=== PATIENT | female | born 1940 | race Caucasian/White ===

== ENCOUNTER 2016-10-25 15:00 | Observation (INO) | payer OTHER ==
--- NOTE | 2016-10-25 15:30 | EDPHY ---
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 Sometimes up by Tylenol and associated with diarrhea which is intermittent and not black or bloody. No vomiting. Associated symptoms include decreased appetite per the family, cognitive decline , and falling last with increasingly unsteady gait. Patient states she thinks she is eating normally but the family says dramatically decreased appetite secondary to not being hungry. REVIEW OF SYSTEMS: Eye: no change in vision ENT: no sore throat Cardiac: no chest pain or syncope Pulmonary: no cough or SOB Abdomen: HPI Musculoskeletal: no back pain Skin: no rash Neuro: no headache, but increasing weakness Constitutional: no fever : no urinary symptoms A comprehensive 10 point review of systems is otherwise negative aside from elements mentioned in the history of present illness. PAST MEDICAL HISTORY: Discharge summary dated 06/25/16 personally reviewed by myself. 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 Social history: History from family including and others General Appearance: Alert and conversant, cooperative. Eyes: No scleral icterus. ENT, Mouth: Dry mucous membranes Respiratory: Normal respiratory effort, breath sounds equal, lungs are clear to auscultation. Cardiovascular: Regular rate and rhythm. Gastrointestinal: Left upper quadrant and right lower quadrant very mild tenderness without rebound or guarding. Neurological: Alert and follows commands. Normally conversant. Face symmetric , normal movement and sensation in all extremities. Skin: Warm and dry, no rashes. Musculoskeletal: No peripheral edema and no joint swelling. Psychiatric: Not agitated. Emergency Department course/MDM: Answers questions appropriately. She appears comfortable and is conversant and does not appear in severe distress. Lab sent to include chemistry panel liver function tests and protime, as well as three-way abdomen. Dr. Flores her oncologist is paged and discussed at [phone]. Recommends abdominal pelvic CT scanning and admission for pain control and coordination of consultations regarding her care. Clinically the patient is not acidotic. She is not in severe pain and does not have severe tenderness, mesenteric ischemia was considered but I think not highly likely. CT scanning was performed without contrast because of slightly elevated creatinine and a very small person, concern for very low GFR. Smoking Status: Never smoked Constitutional: Initial Vital Signs Temperature (C) 36.5 C 10/25/16 15:01 Heart Rate 87 10/25/16 15:01 Respiratory Rate 16 10/25/16 15:01 Blood Pressure 121/69 H 10/25/16 15:01 O2 Sat (%) 97 10/25/16 15:01 O2 Delivery Mode Nasal Cannula O2 (L/minute) 2 Allergies/Adverse Reactions: codeine [Codeine] Allergy (Verified 09/15/16 10:11) GI oxycodone HCl [From Percocet] Allergy (Verified 09/15/16 10:11) GI Home Medications: Medication Instructions Recorded Atenolol [Tenormin 25 mg (*)] 25 mg PO DAILY 06/06/16 Atorvastatin Calcium [Lipitor 20 20 mg PO HS 06/06/16 mg (*)] Omeprazole [Prilosec 20 mg] 20 mg PO DAILY 06/06/16 Ondansetron Odt [Zofran Odt 4 mg 4 mg PO Q8 PRN 06/17/16 (*)] Acetaminophen [Tylenol 325mg (*)] 650 mg PO Q4 PRN #0 tab 06/25/16 Magnesium Oxide [Magnesium Oxide 400 mg PO DAILY 10/25/16 400 mg (*)] Potassium Chloride [Klor-Con 10] 10 meq PO DAILY 10/25/16 Warfarin Sodium [Coumadin 3MG (*)] 3 mg PO DAILY16 10/25/16 Medical Decision Making - Diagnostics Imaging: CT abdomen and pelvis ordered without contrast because of elevated creatinine reported by Dr. Arnulfo Wilburn at 6:00 p.m. is possible peritoneal carcinomatosis no reason for abdominal pain. Differential Diagnosis: Differential considered including but not limited to cancer, bowel obstruction, ischemic bowel, infectious diarrhea, metabolic. Consult/Admit Bed Type: [place] [id number] - Data Points Laboratory Results: Laboratory Results 10/25/16 16:18 10/25/16 16:18 10/25/16 16:18 WBC 6.18 10^3/uL (3.80-9.50) RBC 4.47 10^6/uL (4.18-5.33) Hgb 12.1 L g/dL (12.6-16.3) Hct 37.8 L % (38.0-47.0) MCV 84.6 fL (81.5-99.8) MCH 27.1 L pg (27.9-34.1) MCHC 32.0 L g/dL (32.4-36.7) RDW 14.3 % (11.5-15.2) Plt Count 200 10^3/uL (150-400) MPV 9.7 fL (8.7-11.7) Neut % (Auto) 58.0 % (39.3-74.2) Lymph % (Auto) 31.2 % (15.0-45.0) Daniels % (Auto) 8.6 % (4.5-13.0) Eos % (Auto) 1.3 % (0.6-7.6) Baso % (Auto) 0.6 % (0.3-1.7) Nucleat RBC Rel Count 0.0 % (0.0-0.2) Absolute Neuts (auto) 3.58 10^3/uL (1.70-6.50) Absolute Lymphs (auto) 1.93 10^3/uL (1.00-3.00) Absolute Monos (auto) 0.53 10^3/uL (0.30-0.80) Absolute Eos (auto) 0.08 10^3/uL (0.03-0.40) Absolute Basos (auto) 0.04 10^3/uL (0.02-0.10) Absolute Nucleated RBC 0.00 10^3/uL (0-0.01) Immature Gran % 0.3 % (0.0-1.1) Immature Gran # 0.02 10^3/uL (0.00-0.10) PT 31.7 H SEC (12.0-15.0) INR 3.02 H (0.83-1.16) Sodium 141 mEq/L (134-144) Potassium 4.1 mEq/L (3.5-5.2) Chloride 104 mEq/L (97-110) Carbon Dioxide 28 mEq/l (22-31) Anion Gap 9 mEq/L (8-16) BUN 24 H mg/dL (7-23) Creatinine 1.2 H mg/dL (0.6-1.0) Estimated GFR 44 Glucose 105 H mg/dL (70-100) Calcium 9.3 mg/dL (8.5-10.4) Total Bilirubin 0.5 mg/dL (0.1-1.4) Conjugated Bilirubin 0.3 mg/dL (0.0-0.5) Unconjugated Bilirubin 0.2 mg/dL (0.0-1.1) AST 19 IU/L (14-46) ALT 28 IU/L (9-52) Alkaline Phosphatase 75 IU/L (38-126) Total Protein 6.7 g/dL (6.3-8.2) Albumin 3.8 g/dL (3.5-5.0) Medications Given: Discontinued Medications Sodium Chloride (Ns) 1,000 mls @ 3,000 mls/hr IV ONCE ONE Stop: 10/25/16 19:02 Last Admin: 10/25/16 19:19 Dose: 1,000 mls Morphine Sulfate (Morphine) 2 mg IVP EDNOW ONE Stop: 10/25/16 16:53 Last Admin: 10/25/16 16:59 Dose: 2 mg Departure - Departure Disposition: [facility] Inpatient Acute Clinical Impression: Abdominal pain Condition: Good
--- NOTE | 2016-10-25 16:24 | DX ---
Three-Way Abdomen History: Abdominal pain. Chest Findings: Ventriculoperitoneal shunt partially visualized. The heart is normal in size. Left chest wall recording device. Atherosclerotic aorta. Slight hyperinflation of the lungs. No pneumo michela, pleural effusion, or pneumothorax. Abdomen, Two-View, Findings: Ventriculoperitoneal shunt ends in the left mid abdomen. Scattered sto ol and gas in the bowel, without obstruction or dilation. No significant air-fluid levels. No pneum operitoneum. Surgical sutures in right side of the abdomen and pelvis. Atherosclerotic abdominal ao rta. Impressions 1. Mild COPD. 2. No acute pulmonary disease. 3. No bowel obstruction or pneumoperitoneum. 4. Atherosclerotic aorta.
[2016-10-25 16:32] LABS: % IMMATURE GRANULYOCYTES 0.3 % (0.0-1.1); ABSOLUTE IMMATURE GRANULOCYTES 0.02 10^3/uL (0.00-0.10); ADD DIFF? NO; ADD MORPH? NO; ADD SCAN? NO; ATYPICAL LYMPHOCYTE FLAG 20 (0-99); FRAGMENT RBC FLAG 0 (0-99); HEMATOCRIT 37.8 % (38.0-47.0); HEMOGLOBIN 12.1 g/dL (12.6-16.3); LEFT SHIFT FLG 0 (0-99); LIPEMIA HEMOLYSIS FLAG 80 (0-99); MEAN CELL HEMOGLOBIN 27.1 pg (27.9-34.1); MEAN CELL VOLUME 84.6 fL (81.5-99.8); MEAN PLATELET VOLUME 9.7 fL (8.7-11.7); PLATELET CLUMPS FLAG 10 (0-99); PLATELET COUNT 200 10^3/uL (150-400); RED BLOOD CELL COUNT 4.47 10^6/uL (4.18-5.33); RED CELL DISTRIBUTION WIDTH 14.3 % (11.5-15.2)
[2016-10-25 16:40] LABS: INR 3.02 (0.83-1.16); PROTIME(PATIENT) 31.7 SEC (12.0-15.0)
[2016-10-25 16:46] LABS: ALANINE AMINOTRANSFERASE 28 IU/L (9-52); ALBUMIN 3.8 g/dL (3.5-5.0); ALKALINE PHOSPHATASE 75 IU/L (38-126); ANION GAP 9 mEq/L (8-16); ASPARTATE AMINOTRANSFERASE 19 IU/L (14-46); BILIRUBIN,TOTAL 0.5 mg/dL (0.1-1.4); BILIRUBIN-CONJUGATED 0.3 mg/dL (0.0-0.5); BILIRUBIN-UNCONJUGATED 0.2 mg/dL (0.0-1.1); CALCIUM 9.3 mg/dL (8.5-10.4); CARBON DIOXIDE 28 mEq/l (22-31); CHLORIDE 104 mEq/L (97-110); CREATININE 1.2 mg/dL (0.6-1.0); GLOMERULAR FILTRATION RATE 44; GLUCOSE 105 mg/dL (70-100); POTASSIUM 4.1 mEq/L (3.5-5.2); SODIUM 141 mEq/L (134-144); TOTAL PROTEIN 6.7 g/dL (6.3-8.2)
--- NOTE | 2016-10-25 18:27 | CT ---
CT Scan of the Abdomen and Pelvis (Without IV Contrast) Clinical Indications: Left-sided abdominal pain. History of colon cancer, with resection. Technique: No intravenous contrast was given. Multidetector helical CT imaging is performed from th e diaphragm to the symphysis pubis. Dose reduction techniques were utilized. Comparison: September 15, 2016. Findings: There is some scarring in the right middle lobe. The ventriculoperitoneal shunt is unchan ged from the prior examination. The liver is normal. The gallbladder is predominantly decompressed, with adjacent small bowel presen t. No calcifications are seen in the gallbladder. The pancreas and spleen are normal. The adrenal glands and kidneys are normal. Exophytic cyst is present in the left upper kidney. The aorta tapers normally. No stones are found. Pelvis: The urinary bladder is unremarkable. No free fluid in the pelvis. No masses are identified . The peritoneal nodule anterior to the bladder is slightly smaller than the prior examination. It measures 10 x 15 mm on today's examination, previously measuring 12 x 17 mm. It is seen series #3, i mage #253. Other small peritoneal nodules seen on the prior examination are not as well visualized t wali due to the lack of oral and IV contrast on today's study. Nodularity along the lower abdominal wall is suspicious for mesenteric disease and is slightly more prominent as seen on series #3, image #212, today than on prior examinations. The largest nodule measures 10 x 11 mm, previously measuring 7 x 8 mm. A ventriculoperitoneal shunt is again noted. Surgical changes are present in the mid abd omen, with adjacent soft tissue. I suspect this soft tissue represents tumor near the anastomosis. Impression: Increased thickening around the postsurgical site likely represents tumor. There is a m ixed response, with some increased subcutaneous nodules and decreased peritoneal metastasis adjacent to the bladder. No definite source of abdominal pain is present on today's examination Critical results relayed by Dr. Wilburn to Dr. Dylon Braun on October 25, 2016 at 1805 hours.
[2016-10-25] MEDS ORDERED: ONDANSETRON 4 MG/2 ML VIAL IVP PRN (18:43)
[2016-10-25] MEDS ORDERED: NS 1,000 ML IV ONE (18:43)
[2016-10-25] MEDS ORDERED: ONDANSETRON DISINTEGRATING 4 MG TAB PO PRN (18:43)
[2016-10-25] MEDS ORDERED: ACETAMINOPHEN 325 MG TAB PO PRN (18:43)
--- NOTE | 2016-10-25 22:20 | GHP ---
[f rep st] HISTORY AND PHYSICAL DATE OF ADMISSION: 10/25/2016 CHIEF COMPLAINT: Abdominal pain. 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 The patient reports severe pain in the home keeping her from safely ambulating, markedly di minishing her appetite. She has had rapid weight loss recently and has noted some loosening of her s tools described as butter in consistency and color. The patient has had some nausea with this abdomi nal pain, but no vomiting. Denies any melenic stools or bright red blood. The patient has additiona lly had some cognitive decline based on report of her family with associated unsteady gait. PAST MEDICAL HISTORY: 1. Stage IIIB adenocarcinoma of the right colon. 2. Dementia. 3. Obstructive hydrocephalus with SKILL LABOR shunt. 4. Atrial fibrillation on anticoagulation. 5. History of small-bowel obstruction. 6. Recurrent syncope with a link recorder. SOCIAL HISTORY: Negative for tobacco, alcohol, or illicit drugs. FAMILY HISTORY: No history of kidney stones. ADVANCED DIRECTIVES: The patient is full cor, full tube. Her would be her medical decision maker. REVIEW OF SYSTEMS: A 10-point review of systems is negative with the exception of that reported in t he HPI. PHYSICAL EXAMINATION: VITAL SIGNS: Blood pressure 162/82, heart rate 82, respiratory rate 18, 100% on 2 L, 97 on room air, 36.5. GENERAL: This is a cachectic-appearing female in no acute distress. HEENT: Notable for dry mucous membranes. Eye exam is negative for any icterus. CARDIAC: Patient i s regular rate and rhythm. PULMONARY: Diminished respiratory effort. Clear to auscultation bilater ally. GASTROINTESTINAL: Positive bowel sounds. ABDOMEN: Soft, nontender in all 4 quadrants. MUSC ULOSKELETAL: Negative for any lower extremity edema. SKIN: Negative for any rashes. NEUROLOGIC: Patient is alert and oriented x3, although easily distracted in conversation. PSYCHIATRIC: She is p leasant and cooperative on interview and examination. LABORATORY DATA: White count 6.1, INR 3.02, creatinine 1.2; baseline appears to be 1, sodium 141. C T of the abdomen, which I personally reviewed and interpreted, shows postoperative changes from her r esection. No evidence of bowel obstruction. ASSESSMENT AND PLAN: This is a 76-year-old female with a history of stage IIIB adenocarcinoma of the colon presenting with progressing symptoms of pain, anorexia, and weight loss, being admitted for pa in control. 1. Abdominal pain thought secondary to her primary malignancy. I have initiated IV morphine pushes to assist in calculating a basal dose of long-acting morphine tomorrow. The patient has had good sym ptomatic relief with her 1st doses. We will place the patient on a bowel regimen as we uptitrate her pain regimen. Oncology will see in the morning and assist in guidance regarding likely care heading towards palliative measures. 2. Severe protein calorie malnutrition secondary to progressive malignancy. We will write the patie nt for nourishments and a dietary consult. 3. Atrial fibrillation. We will continue patient's current home medications including anticoagulati on. 4. Dementia. Patient appears near her recent baseline. We will continue home medications. 5. Acute kidney injury, suspect secondary to hypovolemia with her poor p.o. intake. We will treat w ith IV fluid bolus and recheck renal function in the morning. 6. Hyperlipidemia. We will continue her statin therapy. 7. Gastroesophageal reflux disease. We will continue her proton pump inhibitor. 8. Hold Lovenox as on full-dose anticoagulation. 9. Diet. Regular with nourishments. DISPOSITION: I expect greater than 2 midnights as the patient requires medication titration with IV pain medications and disposition planning related to her malignancy. Discussed the case with the ER physician. Patient will be triaged to the medical-surgical floor for care. /[id number]/MODL
[2016-10-26 06:02] LABS: % IMMATURE GRANULYOCYTES 0.3 % (0.0-1.1); ABSOLUTE IMMATURE GRANULOCYTES 0.02 10^3/uL (0.00-0.10); ADD DIFF? NO; ADD MORPH? NO; ADD SCAN? NO; ATYPICAL LYMPHOCYTE FLAG 10 (0-99); FRAGMENT RBC FLAG 0 (0-99); HEMATOCRIT 39.8 % (38.0-47.0); HEMOGLOBIN 12.3 g/dL (12.6-16.3); LEFT SHIFT FLG 0 (0-99); LIPEMIA HEMOLYSIS FLAG 80 (0-99); MEAN CELL HEMOGLOBIN 26.4 pg (27.9-34.1); MEAN CELL HEMOGLOBIN CONCENTR. 30.9 g/dL (32.4-36.7); MEAN CELL VOLUME 85.4 fL (81.5-99.8); PLATELET CLUMPS FLAG 0 (0-99); PLATELET COUNT 185 10^3/uL (150-400); RED BLOOD CELL COUNT 4.66 10^6/uL (4.18-5.33)
[2016-10-26 06:24] LABS: ANION GAP 10 mEq/L (8-16); CALCIUM 9.2 mg/dL (8.5-10.4); CARBON DIOXIDE 28 mEq/l (22-31); CHLORIDE 105 mEq/L (97-110); CREATININE 0.9 mg/dL (0.6-1.0); GLOMERULAR FILTRATION RATE > 60; GLUCOSE 80 mg/dL (70-100); POTASSIUM 4.3 mEq/L (3.5-5.2); SODIUM 143 mEq/L (134-144)
[2016-10-26] MEDS ORDERED: ENOXAPARIN 30 MG/0.3 ML SYR SC SCH (09:00)
[2016-10-26] MEDS: ATENOLOL 25 MG TAB PO SCH (09:50)
[2016-10-26] MEDS: PANTOPRAZOLE SODIUM 40 MG TAB PO SCH (09:50)
[2016-10-26] MEDS: MAGNESIUM OXIDE 400 MG TAB PO SCH (09:50)
--- NOTE | 2016-10-26 10:50 | HOSPPROG ---
Hospitalist Progress Note Assessment/Plan: 76-year-old with advanced dementia comes in with abdominal pain and found to have recurrent colon cancer. # colon cancer with recurrent mass in the abdomen. Discussed with Dr. Romero regarding treatment options given her medical issues including her advanced dementia. Reviewed his discussion with family members and medical POA. * Reviewed treatment options with Oncology. Given her cognitive impairment, would not recommend any adjuvant therapy but move towards palliative care. * Pain management * Palliative care consult # advanced dementia. Patient quite pleasant but is oriented to self only * Will likely need increased level of care at discharge, will ask CM to assess needs with family. # hydrocephalus status post LAW ENFORCEMENT OFFICER shunting # atrial fibrillation on anticoagulation with Coumadin and therapeutic INR # DVT prophylaxis patient high risk but is currently anticoagulated with Coumadin Subjective: Patient new to me, chart reviewed. Patient complains of some abdominal discomfort but is able to eat a full breakfast at this time. She has no other complaints but has very poor short-term memory Objective: Vital Signs Temp Pulse Resp BP Pulse Ox 36.4 C 75 18 146/83 H 96 10/26/16 07:54 10/26/16 07:54 10/26/16 07:54 10/26/16 07:54 10/26/16 07:54 Laboratory Results 10/26/16 05:15 10/26/16 05:15 10/25/16 10/26/16 10/27/16 05:59 05:59 05:59 Intake Total 1000 Output Total 750 Balance 250 PT 31.7 SEC (12.0-15.0) H 10/25/16 16:18 INR 3.02 (0.83-1.16) H 10/25/16 16:18 - Physical Exam Constitutional: no apparent distress Eyes: PERRL, EOMI Ears, Nose, Mouth, Throat: moist mucous membranes Cardiovascular: regular rate and rhythym, no murmur, rub, or gallop Respiratory: no respiratory distress, clear to auscultation, reduced air movement Gastrointestinal: normoactive bowel sounds, tenderness, distension (Mild) Genitourinary: no bladder fullness Skin: warm Musculoskeletal: no joint effusions Neurologic: No AAOx3, No facial droop ICD10 Worksheet Patient Problems: Problems Problem Status Diagnosed Abdominal pain Acute Colonic mass Acute Dehydration Acute Nausea and vomiting Acute Palliative care encounter Acute Vomiting Acute Weakness Acute
--- NOTE | 2016-10-26 12:23 | SOAPPROG ---
DENISE Progress Note Assessment/Plan: Assessment: 1.) Stage IIIB Colon Cancer, resected from hepatic flexure 06/17/16, T4a,N1a,M0 disease, with 1/20 LN +. Now in a follow up situation. Clinical situation clearly does not warrant aggressive work up nor consideration of active treatment ( any form of systemic chemotherapy). 2.) Dementia 3.) Medical/physical frailty 4.) Social situation - with profound Dementia and with personal care needs. 5.) Abdominal pain- could be due to post-op adhesions causing abdominal pain and constipation. Plan: 1.) I reviewed the clinical situation/history/symptoms and goals of care with Jackeline and six family members in her hospital room today. Clearly there is to be no aggressive work up and no active cancer treatment- chemotherapy is to be considered or advised. 2.) Agree with Palliative Care consult to assess how to best relieve sx. and care for patient/ post-hospital discharge. She may need other facility. Palliative care assessment and/or SNF Hospice would be within lifespan expectations and appropriate potential choices. 3.) Medical POA is apparently with her nephew, Mervin who was present during today's discussion. 4.) Will try tramadol to see if this gives adequate pain relief without objectionable side effects. 5.) Discharge either to [facility] or another facility when this can be arranged is agreeable to our service. 6.) I have informed my partner, Dr. Garrett Flores of her circumstances and he agrees with the above approach. 7.) Will recheck. 8.) The patient's family were satisfied with the above plans and limitations. 10/26/16 12:23 Subjective: Pt experiencing Left sided abdominal pain. She was interviewed with six family members in the room today with all family members actively participating to provide their perspective on her condition/ symptoms/living situation with her having significant dementia. Objective: Pt alert and talkative, and answers questions appropriately. She is in NAD. She has obvious poor auditory acuity. VSS, Afebrile HEENT- anicteric, no oral lesions, Neck- supple, no LN enlargement Chest- clear CVS- RSR, no extra HS, ABD- nondistended, BS+, soft, subQ nodule noted in LUQ, which is NT to exam. No mass, no HSM, no ascites. EXT- no edema, skin intact Labs as noted here: Hgb 12.3 Cr 0.9 K+ 4.3, Na+ 143 CT abdomen/pelvis- no convincing evidence for recurrence/obstruction/ascites/ additional pathology Vital Signs Temp Pulse Resp BP Pulse Ox 36.4 C 80 18 113/72 94 10/26/16 07:54 10/26/16 11:22 10/26/16 11:22 10/26/16 11:22 10/26/16 11:22 Laboratory Results 10/26/16 05:15 10/26/16 05:15 10/25/16 10/26/16 10/27/16 05:59 05:59 05:59 Intake Total 1000 Output Total 750 Balance 250 PT 31.7 SEC (12.0-15.0) H 10/25/16 16:18 INR 3.02 (0.83-1.16) H 10/25/16 16:18 ICD10 Worksheet Patient Problems: Problems Problem Status Diagnosed Abdominal pain Acute Colonic mass Acute Dehydration Acute Nausea and vomiting Acute Palliative care encounter Acute Vomiting Acute Weakness Acute
[2016-10-26] MEDS: ACETAMINOPHEN 500 MG TAB PO SCH ×2 (18:46→22:03)
[2016-10-26] MEDS: WARFARIN SODIUM 3 MG TAB PO SCH (18:46)
[2016-10-26] MEDS: ATORVASTATIN CALCIUM 20 MG TAB PO SCH (22:01)
[2016-10-27] MEDS: ACETAMINOPHEN 500 MG TAB PO SCH ×3 (10:49→21:48)
[2016-10-27] MEDS: PANTOPRAZOLE SODIUM 40 MG TAB PO SCH (10:52)
[2016-10-27] MEDS: MAGNESIUM OXIDE 400 MG TAB PO SCH (10:52)
[2016-10-27] MEDS: ATENOLOL 25 MG TAB PO SCH (10:52)
--- NOTE | 2016-10-27 14:45 | PDPCPN ---
Palliative Care Progress Note Assessment/Plan: Referring provider: Dr Diaz Reason for consult: Complex medical decision making Symptom control HPI: Jackeline Kendrick is a 76 yo female with PMH stage IIIb adenocarcinoma, dementia, a fib, SBO, and hydrocephalus s/p shunt placement admitted to the hospital for increasing abdominal pain and failure to thrive. Dx with adenocarcinoma in sep s /p surgical removal. Follows with Dr Flores at [facility] with no additional therapies planned. Lives at the [facility] with her . Has family involved stepdaughters and a nephew. Ct on admission with likely reoccurrence of her cancer at the anastomosis site. Morphine helping with pain. Palliative care consulted for complex medical decision making. Met with Jackeline, Alberto, Sara step daughter, Brother, and nephew Mervin at the bedside today. Discussed the reason for admission and her current status of her colon cancer. Discussed hospice care vs palliative care at length. Also discussed code status with MOST form from 2 years ago stating DNR. Family agrees Jackeline would want DNR and comfort. Jackeline stated she does not want any chemotherapy and what matters most to her is being with Alberto and being comfortable out of the hospital. Assessment: Physical: - Pain: - on scheduled tylenol - added roxanol PO Q2hr PRN - morphine IV if PO not available or ineffective - constipation - at risk with opiates with senna and colace Emotional/psychological: acute on chronic encephalopathy: maintain normal routines - haldol only if agitated Advanced Care Planning: Is patient decisional?: No unless with help Code Status: DNR POA: Mervin is MDPOA. Plan: Family is looking for more [facility] care with memory care and is interested in meeting with hospice care as outpatient. They would like to use [facility]. Subjective: I have some band like pain in my stomach Objective: Social History: to Alberto. Nephew, brother, and step children are all involved. Medication list reviewed ROS: General: fatigue, weakness, weight loss ENT: negative Resp: negative GI: poor appetite, abdominal pain : negative MS: negative Skin: negative Neuro: negative Psych: confusion Functional assessment: PPS: 40% Functional status: needs assistance with most ADLs Vital Signs Temp Pulse Resp BP Pulse Ox 36.9 C 73 16 131/62 H 97 10/27/16 12:15 10/27/16 12:15 10/27/16 12:15 10/27/16 12:15 10/27/16 12:15 Laboratory Results 10/26/16 05:15 10/26/16 05:15 10/26/16 10/27/16 10/28/16 05:59 05:59 05:59 Intake Total 1000 300 Output Total 750 200 Balance 250 100 PT 31.7 SEC (12.0-15.0) H 10/25/16 16:18 INR 3.02 (0.83-1.16) H 10/25/16 16:18 Physical Exam - Physical Exam General Appearance: alert, no apparent distress Respiratory: No respiratory distress, No accessory muscle use Skin: normal color, warm/dry Extremities: No pedal edema Neuro/Psych: alert, disoriented to time ICD10 Worksheet Patient Problems: Problems Problem Status Diagnosed Abdominal pain Acute Colonic mass Acute Dehydration Acute Nausea and vomiting Acute Palliative care encounter Acute Vomiting Acute Weakness Acute
[2016-10-27] MEDS: WARFARIN SODIUM 3 MG TAB PO SCH (16:42)
[2016-10-27] MEDS: morphINE 10 MG/0.5 ML UDSYR PO PRN (16:42)
--- NOTE | 2016-10-27 18:45 | HOSPPROG ---
Hospitalist Progress Note Assessment/Plan: Assessment/Plan: 76-year-old with advanced dementia comes in with abdominal pain and found to have recurrent colon cancer. # colon cancer with recurrent mass in the abdomen. Given her cognitive impairment, would not recommend any adjuvant therapy but move towards palliative care. -CT of the abdomen demonstrates recurrent tumor at the surgical site -pain management as needed -patient and family are agreeable to transitioning to a memory care unit where palliative Care can be received # advanced dementia. Patient quite pleasant but is oriented to self only -Memory Care Unit being pursued by family # hydrocephalus status post PLATER BARREL shunting. Chronic # atrial fibrillation. Permanent, on anticoagulation with Coumadin and therapeutic INR Diet. Regular Prophylaxis. High risk patient, currently on Coumadin Code. Do not resuscitate per existing most form as well as confirmation with [facility] Disposition. Anticipated discharge is 10/29/2016, pending availability of accepting facility whether our services for memory care as well as hospice/ palliative care. Subjective: Patient reports she is feeling well Objective: Vital Signs Temp Pulse Resp BP Pulse Ox 36.6 C 64 18 139/58 H 97 10/27/16 16:45 10/27/16 16:45 10/27/16 16:45 10/27/16 16:45 10/27/16 16:45 Laboratory Results 10/26/16 05:15 10/26/16 05:15 10/26/16 10/27/16 10/28/16 05:59 05:59 05:59 Intake Total 1000 300 Output Total 750 200 Balance 250 100 PT 31.7 SEC (12.0-15.0) H 10/25/16 16:18 INR 3.02 (0.83-1.16) H 10/25/16 16:18 - Pending Discharge Pending Discharge Within 48 Hours: Yes Pending Discharge Date: 10/29/16 Pending Discharge Time: 11:00 - Physical Exam Constitutional: no apparent distress, appears nourished, not in pain, No uncomfortable Cardiovascular: irregularly irregular, No systolic murmur, No tachycardia, No edema Respiratory: no respiratory distress, no rales or rhonchi, clear to auscultation Gastrointestinal: normoactive bowel sounds, tenderness (Lower abdomen), distension (Mild in the lower at), No guarding Genitourinary: no bladder fullness, no bladder tenderness, no renal bruits Neurologic: sensation intact bilaterally, other (Alert awake oriented x2, to person and place), No facial droop Psychiatric: not anxious, poor insight, poor judgement, poor memory, other ( Concentration is 0/7), No agitated ICD10 Worksheet Patient Problems: Problems Problem Status Diagnosed Abdominal pain Acute Colonic mass Acute Dehydration Acute Nausea and vomiting Acute Palliative care encounter Acute Vomiting Acute Weakness Acute
[2016-10-27] MEDS: ATORVASTATIN CALCIUM 20 MG TAB PO SCH (21:48)
--- NOTE | 2016-10-28 06:31 | SOAPPROG ---
[facility] Progress Note Assessment/Plan: Assessment: 1.) Stage IIIB Colon Cancer, resected from hepatic flexure 06/17/16, T4a,N1a,M0 disease, with 11/05 LN +. Now in a follow up situation. Clinical situation clearly does not warrant aggressive work up nor consideration of active treatment ( any form of systemic chemotherapy). 2.) Dementia 3.) Medical/physical frailty 4.) Social situation - with profound Dementia and with personal care needs. 5.) Abdominal pain- could be due to post-op adhesions causing abdominal pain and constipation. Plan: 1.) Based upon disease status and pt's limited physical and cognitive capacity , out of hospital palliative care is warranted and has been discussed and arranged. From the patient's disease status, and health status, it would be reasonable to assume life expectancy of less than 6 months, to warrant Hospice services, if deemed appropriate. 2.) Recontact our service if needed. Will sign off. No follow up as outpatient is necessary. 10/28/16 06:27 Subjective: Hospital course noted with input from Hospitalist service and Palliative Care Service. Pt. currently sleeping soundly at this time, this AM. Objective: As noted here, VSS, Afebrile Pt. soundly asleep at this time. Her labs from 10/26 are noted here and raise no new issues. Vital Signs Temp Pulse Resp BP Pulse Ox 36.5 C 74 18 119/47 L 93 10/28/16 05:27 10/28/16 05:27 10/28/16 05:27 10/28/16 05:27 10/28/16 05:27 Laboratory Results 10/26/16 05:15 10/26/16 05:15 10/27/16 10/28/16 10/29/16 05:59 05:59 05:59 Intake Total 300 1050 Output Total 200 3 Balance 100 1047 PT 31.7 SEC (12.0-15.0) H 10/25/16 16:18 INR 3.02 (0.83-1.16) H 10/25/16 16:18 ICD10 Worksheet Patient Problems: Problems Problem Status Diagnosed Abdominal pain Acute Colonic mass Acute Dehydration Acute Nausea and vomiting Acute Palliative care encounter Acute Vomiting Acute Weakness Acute
[2016-10-28] MEDS: ACETAMINOPHEN 500 MG TAB PO SCH ×3 (09:18→21:04)
[2016-10-28] MEDS: MAGNESIUM OXIDE 400 MG TAB PO SCH (09:19)
[2016-10-28] MEDS: ATENOLOL 25 MG TAB PO SCH (09:19)
[2016-10-28] MEDS: PANTOPRAZOLE SODIUM 40 MG TAB PO SCH (09:19)
--- NOTE | 2016-10-28 15:49 | HOSPPROG ---
Hospitalist Progress Note Assessment/Plan: Assessment/Plan: 76-year-old with advanced dementia comes in with abdominal pain and found to have recurrent colon cancer. # colon cancer with recurrent mass in the abdomen. Given her cognitive impairment, would not recommend any adjuvant therapy but move towards palliative care. -CT of the abdomen demonstrates recurrent tumor at the surgical site -pain management as needed -patient is agreeable to a hospice approach, the patient's previous residence, the [facility], has declined to accept the patient back to her previous living situation despite reassurance that she will receive private duty care, our case management team and hospice consult and have met with the patient and her family to discuss long-term care needs and the possibility of transitioning to [place] as early as tomorrow, if the patient is accepted and appropriate paperwork is completed # advanced dementia. Patient quite pleasant but is oriented to self only # hydrocephalus status post GUI DEVELOPER shunting. Chronic # atrial fibrillation. Permanent, on anticoagulation with Coumadin and therapeutic INR Diet. Regular Prophylaxis. High risk patient, currently on Coumadin Code. Do not resuscitate per existing most form as well as confirmation with [facility] Disposition. Anticipated discharge is 10/29/2016, pending availability of accepting facility, her previous assisted living center has declined to accept the patient today Subjective: Patient is comfortable and has no complaints Objective: Vital Signs Temp Pulse Resp BP Pulse Ox 36.9 C 91 16 119/71 93 10/28/16 08:24 10/28/16 09:19 10/28/16 08:24 10/28/16 09:19 10/28/16 08:24 Laboratory Results 10/26/16 05:15 10/26/16 05:15 10/27/16 10/28/16 10/29/16 05:59 05:59 05:59 Intake Total 300 1050 Output Total 200 3 Balance 100 1047 PT 31.7 SEC (12.0-15.0) H 10/25/16 16:18 INR 3.02 (0.83-1.16) H 10/25/16 16:18 - Time Spent With Patient Time Spent with Patient: greater than 35 minutes Time Spent with Patient: Greater than 35 minutes spent on this patients care, greater than 50% of time spent counseling, educating, and coordinating care regarding the above mentioned plan. - Pending Discharge Pending Discharge Within 24 Hours: Yes Pending Discharge Date: 10/29/16 Pending Discharge Time: 11:00 - Physical Exam Constitutional: no apparent distress, appears nourished, not in pain Psychiatric: other (Speech is fluent, mostly non linear, she is cooperative) ICD10 Worksheet Patient Problems: Problems Problem Status Diagnosed Abdominal pain Acute Colonic mass Acute Dehydration Acute Nausea and vomiting Acute Palliative care encounter Acute Vomiting Acute Weakness Acute
[2016-10-28] MEDS: WARFARIN SODIUM 3 MG TAB PO SCH (17:06)
[2016-10-28] MEDS: ATORVASTATIN CALCIUM 20 MG TAB PO SCH (21:04)
[2016-10-29] MEDS: ACETAMINOPHEN 500 MG TAB PO SCH (05:47)
[2016-10-29 07:56] VITALS: PULSE 84; RESP 16; TEMP 98.2; O2SAT 96
[2016-10-29 07:59] VITALS: BP 120/79
[2016-10-29] MEDS: PANTOPRAZOLE SODIUM 40 MG TAB PO SCH (10:09)
[2016-10-29] MEDS: ATENOLOL 25 MG TAB PO SCH (10:09)
[2016-10-29] MEDS: MAGNESIUM OXIDE 400 MG TAB PO SCH (10:09)
--- NOTE | 2016-10-29 11:19 | PDDCSUM ---
Discharge Summary Discharge Summary: DISCHARGE SUMMARY FOLLOW-UP ITEMS: Transition to long-term care once available, with hospice DATE OF ADMISSION: 10/25/2016 DATE OF DISCHARGE: 10/29/2016 DISCHARGE DIAGNOSES: 1. Colon cancer with recurrence. 2. Advanced dementia 3. Hydrocephalus status post AGENCY SERVICE COORDINATOR shunting, chronic 4. Permanent atrial fibrillation CONSULTATIONS: Hospice, oncology PROCEDURES / IMAGING: CT of the abdomen demonstrating recurrence of the tumor at the surgical site CHIEF COMPLAINT: Acute abdominal pain SUBJECTIVE: Patient reports she is feeling well and she is excited to go home PHYSICAL EXAM ON DISCHARGE: Systolic blood pressure is 120 to 180, patient is alert awake oriented x1, she has fluent speech but is rambling and nonlinear, she is cooperative, she is calm LABS ON DISCHARGE: None HOSPITAL COURSE BY PROBLEM: 1. Colon cancer with recurrence. Patient presented with abdominal pain secondary to recurrence of her colon cancer at the surgical site. She was seen in consultation by Oncology did not recommend any adjuvant therapy given her moderate to severe dementia. They recommended a more palliative approach and transition to hospice care. Extensive conversations took place between the patient, her assisted-living facility, our hospice consultants, and her family, and eventually it was determined that the patient and her would be safe to return to the [facility] and receive home hospice care at that facility. The patient's daughter will reside with them temporarily so she is able to ascertain what types of needs the patient has in the home setting. They have also applied for long-term care, and the patient her will most likely transition there once this option is available. 2. Advanced dementia. Patient has moderate to severe dementia, she is oriented to self only, she is able to engage in conversation but her thought process is nonlinear. She did not have any evidence of behavioral disturbance during this hospitalization. 3. Hydrocephalus status post AGENCY SERVICE COORDINATOR shunting. Chronic, no indication for further investigation. 4. Permanent atrial fibrillation. On systemic anticoagulation and her INR was therapeutic. This may be discontinued in the outpatient setting once patient is fully transitioned into the hospice program. DISCHARGE MEDICATIONS: Please see official discharge medication reconciliation sheet in chart , palliative pain medications as needed. DISCHARGE INSTRUCTIONS: Patient's family and hospice agency will ascertain her needs at home, transition her to a long-term care once appropriate.
--- NOTE | 2016-10-29 11:24 | PDIAF ---
- Diagnosis Diagnosis: Recurrent colon cancer, Advanced dementia, Permanent Afib Code Status: Do Not Resuscitate - Medication Management Discharge Medications: Medications to Continue on Transfer Atenolol [Tenormin 25 mg (*)] 25 mg PO DAILY 06/06/16 [Last Taken 10/25/16] Atorvastatin Calcium [Lipitor 20 mg (*)] 20 mg PO HS 06/06/16 [Last Taken ] Omeprazole [Prilosec 20 mg] 20 mg PO DAILY 06/06/16 [Last Taken 10/25/16] Ondansetron Odt [Zofran Odt 4 mg (*)] 4 mg PO Q8 PRN 06/17/16 [Last Taken Unknown] Acetaminophen [Tylenol 325mg (*)] 650 mg PO Q4 PRN #0 tab 06/25/16 [Last Taken 10/23/16] Magnesium Oxide [Magnesium Oxide 400 mg (*)] 400 mg PO DAILY 10/25/16 [Last Taken 10/25/16] Potassium Chloride [Klor-Con 10] 10 meq PO DAILY 10/25/16 [Last Taken 10/25/16] Warfarin Sodium [Coumadin 3MG (*)] 3 mg PO DAILY16 10/25/16 [Last Taken 10/24/16 ] Ondansetron Odt [Zofran Odt 4 mg (*)] 4 - 8 mg PO Q4HRS PRN #40 tab 10/29/16 [ Last Taken Unknown] morphINE [Roxanol 10 mg/0.5 ml oral soln (*)] 5 mg PO Q2HRS PRN #40 udsyr [Last Taken Unknown] Visual Merchandising Director Antibiotics: NA Discharge Medications: Refer to the Discharge Home Medication list for PRN reason. PICC Care - Routine: N/A - Orders Diet Recommendation: no restrictions on diet Bowser: Not applicable - Follow Up Care Current Providers and Referrals: Lillian Perez MD [Primary Care Provider] - As per Instructions
[2016-10-29] MEDS: morphINE 10 MG/0.5 ML UDSYR PO PRN (13:17)
== END 2016-10-29 15:47 | disposition hospice, home (50) ==
LOC: INTOOBSV 18:33 → F1N 20:20
PROVIDERS: ADMIT Hospitalist; ATTEND Internal Medicine
DX: C18.9 Malignant neoplasm of colon, unspecified (principal); F03.90 Unspecified dementia, unspecified severity, without behavioral disturbance, psychotic disturbance, mood disturbance, and anxiety; G91.1 Obstructive hydrocephalus; Z66 Do not resuscitate; E43 Unspecified severe protein-calorie malnutrition; R10.9 Unspecified abdominal pain; N17.9 Acute kidney failure, unspecified; I48.1 Persistent atrial fibrillation; E78.5 Hyperlipidemia, unspecified; I10 Essential (primary) hypertension; K21.9 Gastro-esophageal reflux disease without esophagitis; J44.9 Chronic obstructive pulmonary disease, unspecified; I70.0 Atherosclerosis of aorta; Z98.2 Presence of cerebrospinal fluid drainage device; Z79.01 Long term (current) use of anticoagulants; Z68.1 Body mass index [BMI] 19.9 or less, adult
CPT/HCPCS: 74022; 74176; 96374; 97161; 97166; 97535; 99285; G0378; G8978; G8979; G8987; G8988; J1650